=== PATIENT | male | born 1945 | race Two or more races ===

== ENCOUNTER 2016-12-05 22:30 | Emergency (ER) | payer OTHER ==
[~2016-12-05] VITALS: Ht 165.1 cm; Wt 102.1 kg
[2016-12-05 22:40] VITALS: BP 170/110
== END 2016-12-06 01:45 | disposition left against medical advice (07) ==
LOC: ER 22:30
DX: S90.861A Insect bite (nonvenomous), right foot, initial encounter (principal); Z53.21 Procedure and treatment not carried out due to patient leaving prior to being seen by health care provider; W57.XXXA Bitten or stung by nonvenomous insect and other nonvenomous arthropods, initial encounter; Y93.89 Activity, other specified; Y92.89 Other specified places as the place of occurrence of the external cause; Y99.8 Other external cause status